=== PATIENT | male | born 1990 | race Two or more races ===

== ENCOUNTER 2018-10-29 16:20 | Emergency (ER) | payer BC ==
--- NOTE | 2018-10-29 16:28 | UC ---
Lower Extremity/Ankle HPI - HPI Summary HPI Summary: 28 yo male presents with b/l feet pain. 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 He has not changed footwear and denies specific injury. His pain is resolved with rest and states it does not happen if he has days off from work. He has tried OTC shoe inserts with no relief. Has not taken NSAIDs for his discomfort. - History of Current Complaint Stated Complaint: FEET PAIN Time Seen by Provider: 10/29/18 16:28 Hx Obtained From: Patient Onset/Duration: Gradual Onset Severity Initially: Moderate Severity Currently: None Pain Intensity: 4 Pain Scale Used: 0-10 Numeric Aggravating Factor(s): Standing, Ambulation Alleviating Factor(s): Rest Able to Bear Weight: Yes - Allergies/Home Medications Home Medications: Home Medications DULoxetine DR MCCABE* [Cymbalta CAP*] 10/29/18 [History] PMH/Surg Hx/FS Hx/Imm Hx - Additional Past Medical History Additional PMH: Muscle spasms - Surgical History Surgical History: None - Family History Known Family History: Positive: Non-Contributory - Social History Occupation: Employed Full-time Lives: With Family Alcohol Use: Occasionally Substance Use Type: None Smoking Status (MU): Never Smoked Tobacco Review of Systems All Other Systems Reviewed And Are Negative: No Constitutional: Positive: Negative Skin: Positive: Negative Respiratory: Positive: Negative Cardiovascular: Positive: Negative Musculoskeletal: Positive: Other: - B/L plantar foot pain Neurological: Positive: Negative Psychological: Positive: Negative Physical Exam - Summary Physical Exam Summary: GENERAL: NAD. WDWN. No pain distress. SKIN: No rashes, sores, lesions, or open wounds. CHEST: No accessory muscle use. Breathing comfortably and in no distress. CV: Pulses intact PT and DP. Cap refill <2seconds MSK: B/L feet: Moderate TTP about plantar fascia. No dorsal foot tenderness or ankle tenderness. Moves all toes without pain. Strength 5/5. NEURO: Alert. Sensations intact and symmetric B/L LEs PSYCH: Age appropriate behavior. Triage Information Reviewed: Yes Vital Signs: Vital Signs: Temp Pulse Resp BP Pulse Ox 98.4 F 84 18 127/72 97 10/29/18 16:40 10/29/18 16:40 10/29/18 16:40 10/29/18 16:40 10/29/18 16:40 Vital Signs Reviewed: Yes Lower Extremity Course/Dx - Course Course Of Treatment: Suspect plantar fasciitis b/l - likely exacerbated by his weight and job duties. Will rx for naproxen and have him f/u with Orthopedics for likely custom shoe inserts. He was provided with exercises to perform to stretch the area. - Differential Dx/Diagnosis Provider Diagnosis: Plantar fasciitis, bilateral Discharge ED - Sign-Out/Discharge Documenting (check all that apply): Patient Departure All imaging exams completed and their final reports reviewed: No Studies - Discharge Plan Condition: Stable Disposition: HOME Prescriptions: Naproxen [Naproxen 500 mg tab] 500 mg PO BID PRN #30 tablet PRN Reason: Pain - Moderate Patient Education Materials: Plantar Fasciitis (ED), Plantar Fasciitis Exercises (ED) Referrals: Juno Puckett DO [Primary Care Provider] - Josemanuel Sandy MD [Medical Doctor] - As Soon As Possible Additional Instructions: If you develop a fever, shortness of breath, chest pain, new or worsening symptoms - please call your PCP or go to the ED immediately. Try supportive and cushioned footwear while working I recommend that you try taking the Naproxen before your work shift to help decrease inflammation in your feet Please call Orthopedics at the number below to schedule an appointment for further evaluation and possible custom shoe inserts to help with your pain - Billing Disposition and Condition Condition: STABLE Disposition: Home
[2018-10-29 16:46] VITALS: BP 127/72
== END 2018-10-29 16:54 | disposition home or self-care (01) ==
LOC: UCEAST 16:20
DX: M72.2 Plantar fascial fibromatosis (principal)
CPT/HCPCS: 99202; G0463

== ENCOUNTER 2019-03-22 21:20 | Emergency (ER) | payer BC ==
--- OUTSIDE RECORDS SUMMARY | 2019-03-22 21:27 | XMS REPORT | Summary of Care ---
:1990 Author Organization [facility] Address [address] [facility] [place] [address] Care Team Providers Name Role Phone None, [place] Primary Care Provider Unavailable Reason for Visit Reason Comments Follow Up f/u right groin pain Encounter Details Date Type Department Care Team Description 01/28/2019 Office Visit [place] Lee Gaona MD Chronic pain of right inguinal region (Primary Dx); Surgery 1 [facility] Class 2 obesity due to excess calories without serious comorbidity with body mass index (BMI) of 38.0 to 38.9 in adult [address] [facility] [address] [address] [address] [place] [address] [phone] Allergies No Known Allergiesdocumented as of this encounter (statuses as of 01/28/2019) Medications Medication Sig Dispensed Refills Start Date End Date Status Sildenafil Citrate 25 MG Take 1 Tab by 0 Active Oral Tab mouth NEEDED. meloxicam (MOBIC) 7.5 MG Take 1 Tab by 60 Tab 1 01/28/2019 03/29/2019 Active Oral Tab mouth TWO TIMES DAILY WITH MEALS for 60 days. cyclobenzaprine Take 1 Tab by 42 Tab 0 01/28/2019 Active (FLEXERIL) 10 MG Oral mouth THREE Tab TIMES DAILY NEEDED (pain). documented as of this encounter (statuses as of 01/28/2019) Active Problems No known active problemsdocumented as of this encounter (statuses as of 2018) Social History Tobacco Use Types Packs/Day Years Used Date Never Smoker Smokeless Tobacco: Never Used Alcohol Use Drinks/Week oz/Week Comments Yes rare Sex Assigned at Date Recorded Not on file Job Start Date Occupation Industry Not on file Not on file Not on file Travel History Travel Start Travel End No recent travel history available. documented as of this encounter Last Filed Vital Signs Vital Sign Reading Time Taken Comments Blood Pressure - - Pulse 74 01/28/2019 8:06 AM EST Temperature - - Respiratory Rate 18 01/28/2019 8:06 AM EST Oxygen Saturation 97% 01/28/2019 8:06 AM EST Inhaled Oxygen Concentration - - Weight 136.1 kg (300 lb) 01/28/2019 8:06 AM EST Height 188 cm (6' 2") 01/28/2019 8:06 AM EST Body Mass Index 38.52 01/28/2019 8:06 AM EST documented in this encounter Progress Notes Lee Nj MD - 01/28/2019 8:00 AM EST Groin Pain Office Visit PATIENT: Eduardo Soriano : 1990 DATE OF SERVICE: 01/28/2019 Lee Nj MD [address] [place] [address] None, [place] Chief Complaint Patient presents with Follow Up f/u right groin pain HISTORY OF PRESENT ILLNESS: 01/28/19 Patient is here today with report of his right groin pain returning. He has not taken the muscle relaxant in over a month. He only intermittently is taking NSAIDs but reports symptoms with intercourse and prolonged standing. No bulging. 11/26/18 Mr. Soriano is here today for follow up of his right groin pain. He reports it is significantly better after his course of flexeril. Continues to deny any bulging or new issues. 10/08/18 Patient presents to the office with a complaint of Right groin pain of 2 years duration. He deniesa bulge. Denies signs or symptoms of obstruction. It was initially noticed in August 2016 and he underwent robotic rih repair with mesh. Pain was worse after surgery and since has noted intermittent swelling extending to the scrotum. He has had an extensive negative workup. He has undergone PT eval without treatment. He also underwent nerve injection and had relief for one week. The pain is severe, localized and intermittent. A comprehensive review of systems was negative. Past Medical History: Diagnosis Date H/O right inguinal hernia repair Past Surgical History: Procedure Laterality Date [place] REPAIR SLIDING INGUINAL HERNIA Social History Socioeconomic History Marital status: Single Spouse name: Not on file Number of children: Not on file Years of education: Not on file Highest education level: Not on file Occupational History Not on file Social Needs Financial resource strain: Not on file Food insecurity: Worry: Not on file Inability: Not on file Transportation needs: Medical: Not on file Non-medical: Not on file Tobacco Use Smoking status: Never Smoker Smokeless tobacco: Never Used Substance and Sexual Activity Alcohol use: Yes Comment: rare Drug use: Yes Types: Marijuana Sexual activity: Not Currently Lifestyle Physical activity: Days per week: Not on file Minutes per session: Not on file Stress: Not on file Relationships Social connections: Talks on phone: Not on file Gets together: Not on file Attends pentecostalism service: Not on file Active member of club or organization: Not on file Attends meetings of clubs or organizations: Not on file Relationship status: Not on file Intimate partner violence: Fear of current or ex partner: Not on file Emotionally abused: Not on file Physically abused: Not on file Forced sexual activity: Not on file Other Topics Concern Not on file Social History Narrative Work: [employer] Living with roommate Family History Problem Relation Age of Onset Cancer Father leukemia No current outpatient medications on file as of 10/08/2018. No current facility-administered medications on file as of 10/08/2018. No Known Allergies PHYSICAL EXAMINATION: Pulse 74 | Resp 18 | Ht 6' 2" (1.88 m) | Wt 300 lb (136.1 kg) | SpO2 97% | BMI 38.52 kg/m GENERAL: VS reviewed; no acute distress. SKIN: normal, no rashes or abnormalities noted. HEENT: normocephalic, atraumatic,sclera normal, anicteric, mucous membrane moist NECK: no mass, trachea midline ENDOCRINE: no thyromegaly. RESPIRATORY: nonlabored breathing, no respiratory distress; no clubbing, cyanosis, or edema. GI: Soft, nontender to deep palpation, nondistended. NEUROLOGICAL: Normal gait, no focal deficits PSYCHIATRIC: Alert and oriented to person, place and time HERNIA: No palpable hernia on examination; slight tenderness ASSESSMENT: ICD-9-CM ICD-10-CM 1. Chronic pain of right inguinal region 789.03 R10.31 338.29 G89.29 2. Class 2 obesity due to excess calories without serious comorbidity with body mass index (BMI) of 38.0 to 38.9 in adult 278.00 E66.09 V85.38 Z68.38 PLAN: We discussed resumption of medications vs referral for nerve block. He would prefer to take medications again as he did get some relief. Recommend restarting muscle relaxants with addition of meloxicam for one additional month. F/u in 4 weeks. Lee Nj MD 01/28/2019 08:58Electronically signed by Lee Nj MD at 9:11 AM ESTdocumented in this encounter Plan of Treatment Date Type Specialty Care Team Description 03/11/2019 Office Visit General Surgery Lee Nj MD [address] [place] [address] Health Maintenance Due Date Last Done Comments INFLUENZA VACCINE (#1) 2018 DEPRESSION SCREENING 09/16/2019 09/15/2018, 09/15/2018 HIV SCREENING 09/16/2019 Postponed from 2005 (Patient refused) HPV IMMUNIZATION SERIES Aged Out No longer eligible based on patient's age to complete this topic MENINGOCOCCAL VACCINE IMM Aged Out No longer eligible based on patient's age to complete this topic PNEUMOCOCCAL 0-64 YRS Aged Out No longer eligible based on patient's age to complete this topic documented as of this encounter Goals Goal Patient Goal Associated Recent Patient-Stated? Author Type Problems Progress Depression Depression 13 No Juno Puckett screen (PHQ-9) (09/15/2018 DO Diego total score < 5 8:19 AM EDT) Note: This is an individualized treatment (depression) goal for Eduardo Soriano: Displayed above is your goal for a depression screening (PHQ-9) score that would indicate good control of your depression. Keep a regular sleep schedule Lifestyle No Juno Puckett DO Note: This is an individualized lifestyle goal for Eduardo Soriano: Please maintain a regular sleep schedule. This may help with some symptoms of depression. Take all prescribed medications as directed Self-management Juno Easton DO Note: This is an individualized self-management goal for Eduardo Soriano: Please take all prescribed medications as directed. 1. Do not skip doses. If you cannot afford your medications, talk with your doctor. 2. Use a pill reminder system such as a pill box if needed. Your pharmacist can help you with this. 3. Contact your Pharmacy 5 days before your medication runs out. If you cannot take your medications for any reasons, talk with your doctor. 4. Please bring all of your medication bottles and inhalers (or a list of all your medications/inhalers) with you to every visit. Potential barriers to meeting all of your care plan goals will continue to be addressed on an ongoing basis. documented as of this encounter Results Not on filedocumented in this encounter Visit Diagnoses Diagnosis Chronic pain of right inguinal region - Primary Class 2 obesity due to excess calories without serious comorbidity with body mass index (BMI) of 38.0 to 38.9 in adult documented in this encounter Insurance Payer Benefit Plan / Subscriber ID Effective Dates Phone Address Type Group [employer] xxxxxxxxxxxx 2018-Present [employer] Guarantor Name Account Type Relation to Date of Phone Billing Patient Address Eduardo Soriano Personal/Family 1990 [address] ([address]) [address] [place] [address] documented as of this encounter
--- OUTSIDE RECORDS SUMMARY | 2019-03-22 21:27 | XMS REPORT | Summary of Care ---
:1990 Author Organization [facility] Address [address] [facility] [place] [address] Care Team Providers Name Role Phone None, [place] Primary Care Provider Unavailable Reason for Visit Reason Comments Follow Up f/u right groin pain Encounter Details Date Type Department Care Team Description 03/11/2019 Office Visit [place] Lee Gaona MD Chronic pain of right inguinal region (Primary Dx); Surgery 1 [facility] Class 2 obesity due to excess calories without serious comorbidity with body mass index (BMI) of 38.0 to 38.9 in adult [address] [facility] [address] [address] [place] [address] [phone] Allergies No Known Allergiesdocumented as of this encounter (statuses as of 03/12/2019) Medications Medication Sig Dispensed Refills Start Date [...] mouth THREE Tab TIMES DAILY NEEDED (pain). cyclobenzaprine Take 1 Tab by 42 Tab 3 03/11/2019 Active (FLEXERIL) 10 MG Oral mouth THREE Tab TIMES DAILY NEEDED (pain). documented as of this encounter (statuses as of 03/12/2019) Active Problems No known active problemsdocumented as of this encounter (statuses as of 2019) Social History Tobacco Use Types Packs/Day Years [...] Taken Comments Blood Pressure - - Pulse 84 03/11/2019 10:19 AM EST Temperature - - Respiratory Rate 16 03/11/2019 10:19 AM EST Oxygen Saturation 98% 03/11/2019 10:19 AM EST Inhaled Oxygen Concentration - - Weight 139.7 kg (308 lb) 03/11/2019 10:19 AM EST Height 188 cm (6' 2") 03/11/2019 10:19 AM EST Body Mass Index 39.54 03/11/2019 10:19 AM EST documented in this encounter Progress Notes Lee Nj MD - 03/11/2019 10:15 AM EST Groin Pain Office Visit PATIENT: Eduardo Soriano : 1990 DATE OF SERVICE: 03/12/2019 Lee Nj MD [address] [address] None, [place] Chief Complaint Patient presents with Follow Up f/u right groin pain HISTORY OF PRESENT ILLNESS: 03/11/2019 Eduardo is here today to discuss his chronic right groin pain. He states he has improvement with flexeril but it makes him tired. Overall his days of symptoms have decreased markedly since I began seeing him. Still denies bulging or new issues. 01/28/19 Patient is here today with report [...] repair Past Surgical History: Procedure Laterality Date [place] REPAIR SLIDING INGUINAL HERNIA Social History Socioeconomic History Marital status: Single Spouse name: Not on file Number of children: Not on file Years of education: Not on file Highest education level: Not on file Occupational History Not on file Social Needs Financial resource strain: Not on file Food insecurity Worry: Not on file Inability: Not on file Transportation needs Medical: Not on file Non-medical: Not on file Tobacco Use Smoking status: Never Smoker Smokeless tobacco: Never Used Substance and Sexual Activity Alcohol use: Yes Comment: rare Drug use: Yes Types: Marijuana Sexual activity: Not Currently Lifestyle Physical activity Days per week: Not on file Minutes per session: Not on file Stress: Not on file Relationships Social connections Talks on phone: Not on file Gets together: Not on file Attends jain service: Not on file Active member of club or organization: Not on file Attends meetings of clubs or organizations: Not on file Relationship status: Not on file Intimate partner violence Fear of current or ex partner: Not on file Emotionally abused: Not on file Physically abused: Not on file Forced sexual activity: Not on file Other Topics Concern Not on file Social History Narrative Work: [employer] Living with roommate Family History Problem Relation Age of Onset Cancer Father leukemia No current outpatient medications on file as of 10/08/2018. No current facility-administered medications on file as of 10/08/2018. No Known Allergies PHYSICAL EXAMINATION: Pulse 84 | Resp 16 | Ht 6' 2" (1.88 m) | Wt 308 lb (139.7 kg) | SpO2 98% | BMI 39.54 kg/m GENERAL: VS reviewed; no acute distress. SKIN: normal, no rashes or abnormalities noted. HEENT: normocephalic, atraumatic,sclera normal, anicteric, mucous membrane moist NECK: no mass, trachea midline ENDOCRINE: no thyromegaly. RESPIRATORY: nonlabored breathing, no respiratory distress; no clubbing, cyanosis, or edema. NEUROLOGICAL: Normal gait, no focal deficits PSYCHIATRIC: Alert and oriented to person, place and time ASSESSMENT: ICD-9-CM ICD-10-CM 1. Chronic pain of right inguinal region 789.03 R10.31 338.29 G89.29 2. Class 2 obesity due to excess calories without serious comorbidity with body mass index (BMI) of 38.0 to 38.9 in adult 278.00 E66.09 V85.38 Z68.38 PLAN: Will continue muscle relaxants at night and on an as needed basis. We discussed the next stepwould be a referral to pain management for consideration of a repeat nerve injection under ultrasound. In the meantime, he will continue to work on weight loss which I feel will improve his symptoms.We decided to not schedule a follow up at this time and he will contact us if he decides he wants toproceed with nerve block. I have refilled his flexeril. Lee Nj MD 03/12/2019 14:02Electronically signed by Lee Nj MD at 2:18 PM ESTdocumented in this encounter Plan of Treatment Health Maintenance Due Date Last Done Comments DTaP/Tdap/Td Vaccines (1 - 2001 Tdap) INFLUENZA VACCINE (#1) 2018 DEPRESSION SCREENING 09/16/2019 09/15/2018, 09/15/2018 HIV SCREENING 09/16/2019 Postponed from 2005 (Patient refused) HEPATITIS A IMMUNIZATION Aged Out No longer eligible based SERIES on patient's age to complete this topic HPV IMMUNIZATION SERIES Aged Out No longer [...] Take all prescribed medications as directed Self-management No Juno Puckett, DO Note: This is an individualized self-management [...] Diagnosis Chronic pain of right inguinal region Class 2 obesity due to excess calories without serious comorbidity with body mass index (BMI) of 38.0 to 38.9 in adult documented in this encounter Insurance Payer Benefit Plan / Subscriber ID Effective Dates Phone Address Type Group [employer] xxxxxxxxxxxx 2018-Present [employer] Guarantor Name Account Type Relation to Date of Phone Billing Patient Address Eduardo Soriano Personal/Family 1990 [address] ([address]) [address] [place] [address] documented as of this encounter
[2019-03-22 22:04] VITALS: BP 136/86
[2019-03-22 22:27] LABS: Influenza A Molecular Negative (Negative); Influenza B Molecular Negative (Negative)
[2019-03-22] MEDS ORDERED: Ondansetron ODT TAB* 4 MG PO ONE ×2 (22:30→22:54)
[2019-03-22] MEDS ORDERED: Amoxicillin PO (*) 500 MG CAP PO ONE ×2 (22:50)
--- NOTE | 2019-03-22 22:56 | UC ---
FLU HPI - HPI Summary HPI Summary: 29-year-old male comes in with chief complaint of sore throat fever chills body aches diarrhea nausea vomiting. Started last evening. He tried ibuprofen did not help much. - History of Current Complaint Chief Complaint: UCGeneralIllness Stated Complaint: FLU SYMPTOMS Time Seen by Provider: 03/22/19 22:30 Pain Intensity: 9 - Allergy/Home Medications Allergies/Adverse Reactions: Allergies Allergy/AdvReac Type Severity Reaction Status Date / Time No Known Allergies Allergy Verified 03/22/19 22:04 Home Medications: Home Medications Cholecalciferol TAB* [Vitamin D TAB*] 1,000 unit PO DAILY 03/22/19 [History Confirmed 03/22/19] Vitamin B Complex CAP* [B Complex CAP*] 1 cap PO DAILY 03/22/19 [History Confirmed 03/22/19] PMH/Surg Hx/FS Hx/Imm Hx Previously Healthy: Yes - Surgical History Surgical History: Yes Surgery Procedure, Year, and Place: hernia repair - Family History Known Family History: Positive: Non-Contributory - Social History Alcohol Use: Occasionally Substance Use Type: Marijuana Smoking Status (MU): Never Smoked Tobacco Review of Systems All Other Systems Reviewed And Are Negative: Yes Constitutional: Positive: Fever, Other - SEE HPI Skin: Positive: Negative Eyes: Positive: Negative ENT: Positive: Sore Throat Respiratory: Positive: Negative Cardiovascular: Positive: Negative Gastrointestinal: Positive: Vomiting, Diarrhea, Nausea Motor: Positive: Negative Neurovascular: Positive: Negative Musculoskeletal: Positive: Myalgia Neurological: Positive: Negative Psychological: Positive: Negative Is Patient Immunocompromised?: No Physical Exam Triage Information Reviewed: Yes Appearance: No Pain Distress, Well-Nourished, Ill-Appearing - MILD Vital Signs: Initial Vital Signs Temp 100.0 F 03/22/19 22:00 Pulse 100 03/22/19 22:00 Resp 18 03/22/19 22:00 BP 136/86 03/22/19 22:00 Pulse Ox 96 03/22/19 22:00 Vital Signs Reviewed: Yes Eye Exam: Normal Eyes: Positive: Conjunctiva Clear ENT: Positive: Pharyngeal erythema, Nasal congestion, Nasal drainage, TMs normal Neck: Positive: Supple Respiratory: Positive: Lungs clear, Normal breath sounds, No respiratory distress Cardiovascular: Positive: RRR Abdomen Description: Positive: Other: - Abdomen is mildly diffusely tender to palpation. Bowel Sounds: Positive: Present Musculoskeletal: Positive: Strength Intact, ROM Intact Neurological: Positive: Alert, Muscle Tone Normal Psychological: Positive: Age Appropriate Behavior Skin Exam: Normal Flu Course/Dx - Course Course Of Treatment: Flu is negative strep was positive. Started the patient on amoxicillin. Also given Zofran here in clinic. Given the patient's had diffuse abdominal pain nausea vomiting diarrhea, Patient should get reevaluated if not improving or worse. - Differential Dx/Diagnosis Provider Diagnosis: Strep pharyngitis Discharge ED - Sign-Out/Discharge Documenting (check all that apply): Patient Departure All imaging exams completed and their final reports reviewed: No Studies - Discharge Plan Condition: Stable Disposition: HOME Prescriptions: Amoxicillin PO (*) [Amoxicillin 875 MG (*)] 875 mg PO BID #18 tab Ondansetron ODT TAB* [Zofran 4 MG Odt TAB*] 4 mg PO Q6H PRN #5 tab.odt PRN Reason: Nausea/Vomiting Patient Education Materials: Strep Throat (ED) [place] [facility] [Outside] Additional Instructions: FOLLOW UP WITH YOUR DOCTOR IF NOT COMPLETELY IMPROVED. GO TO THE EMERGENCY DEPARTMENT IF NOT IMPROVED OR WORSE OR ANY QUESTIONS OR CONCERNS. - Billing Disposition and Condition Condition: STABLE Disposition: Home
== END 2019-03-22 23:05 | disposition home or self-care (01) ==
LOC: UCEAST 21:20
DX: J02.0 Streptococcal pharyngitis (principal); R19.7 Diarrhea, unspecified
CPT/HCPCS: 87651; 99213; A9270-GY; G0463

== ENCOUNTER 2019-05-05 11:26 | Emergency (ER) | payer BC ==
[2019-05-05 12:28] VITALS: BP 127/67
[2019-05-05] MEDS ORDERED: Azithromycin TAB* 250 MG PO ONE (14:28)
[2019-05-05] MEDS ORDERED: Lidocaine 1% MPF ** 5 ML VIAL IM ONE (14:28)
[2019-05-05] MEDS ORDERED: cefTRIAXone VIAL(*) 250 MG VIAL IM ONE (14:28)
[2019-05-05] MEDS ORDERED: Tenofovir/Emtricitab 200/300 * TAB PO ONE (14:45)
[2019-05-05] MEDS ORDERED: Raltegravir* 400 MG TAB PO ONE (14:46)
--- NOTE | 2019-05-05 14:54 | UC ---
Throat Pain/Nasal Jeyson HPI - HPI Summary HPI Summary: 29-year-old male comes in with a chief complaint of runny nose nasal congestion for a couple of weeks. He has green rhinorrhea. Does have some postnasal drip. Does have cough no complaint of shortness of breath. Also patient reports that he was having intercourse with a man last night and the condom broke. Patient reports that the person he was having sex with his high risk and he would like to be tested for sexually transmitted infections and be treated with PEP. No dysuria. No genital pain or lesions. - History of Current Complaint Chief Complaint: UCBodyFluidExposure Stated Complaint: CONGESTED Time Seen by Provider: 05/05/19 14:11 Pain Intensity: 4 - Allergies/Home Medications Allergies/Adverse Reactions: Allergies Allergy/AdvReac Type Severity Reaction Status Date / Time No Known Allergies Allergy Verified 05/05/19 12:28 Home Medications: Home Medications Cholecalciferol TAB* [Vitamin D TAB*] 1,000 unit PO DAILY 03/22/19 [History Confirmed 05/05/19] Vitamin B Complex CAP* [B Complex CAP*] 1 cap PO DAILY 03/22/19 [History Confirmed 05/05/19] DOXYcycline CAP(*) [DOXYcycline 100MG CAP(*)] 100 mg PO BID #20 cap 05/05/19 [Rx ] Raltegravir* [Isentress*] 400 mg PO BID #55 tab 05/05/19 [Rx] Tenofovir/Emtricitab 200/300 * [Truvada 200/300 mg*] 1 tab PO DAILY #27 tab 02/11 [Rx] PMH/Surg Hx/FS Hx/Imm Hx Previously Healthy: Yes - Surgical History Surgical History: Yes Surgery Procedure, Year, and Place: hernia repair now has chronic pain - Family History Known Family History: Positive: Non-Contributory - Social History Alcohol Use: Occasionally Substance Use Type: Marijuana Smoking Status (MU): Never Smoked Tobacco Review of Systems All Other Systems Reviewed And Are Negative: Yes Constitutional: Positive: Negative Skin: Positive: Negative Eyes: Positive: Negative ENT: Positive: Sore Throat, Nasal Discharge, Sinus Congestion, Sinus Pain/ Tenderness Respiratory: Positive: Cough Cardiovascular: Positive: Negative Gastrointestinal: Positive: Negative Genitourinary: Positive: Negative Motor: Positive: Negative Neurovascular: Positive: Negative Musculoskeletal: Positive: Negative Neurological/Mental Status: Positive: Negative Psychological: Positive: Negative Is Patient Immunocompromised?: No Physical Exam Triage Information Reviewed: Yes Appearance: No Pain Distress, Well-Nourished, Ill-Appearing - MILD Vital Signs: Initial Vital Signs Temp 98.7 F 05/05/19 12:24 Pulse 78 05/05/19 12:24 Resp 18 05/05/19 12:24 BP 127/67 05/05/19 12:24 Pulse Ox 98 05/05/19 12:24 Vital Signs Reviewed: Yes Eye Exam: Normal Eyes: Positive: Conjunctiva Clear ENT: Positive: Pharyngeal erythema, Nasal congestion, Nasal drainage, TMs normal Neck: Positive: Supple Respiratory: Positive: Lungs clear, Normal breath sounds, No respiratory distress Cardiovascular: Positive: RRR Musculoskeletal: Positive: Strength Intact, ROM Intact Neurological: Positive: Alert, Muscle Tone Normal Psychological: Positive: Age Appropriate Behavior Skin Exam: Normal Throat Pain/Nasal Course/Dx - Course Course Of Treatment: For the sinusitis we'll treat with doxycycline 100 mg milligrams by mouth twice a day 10 days. Patient reports exposure to a high risk individual. CBC, CMP, RPR, hepatitis B and C and HIV blood tests were drawn. Urine gonorrhea chlamydia was obtained. Patient treated with 1 g of azithromycin by mouth and Rocephin 250 mg IM in clinic. Also patient started on Truvada once a day for 28 days and Isentress 4 mg twice a day for 28 days. Patient will follow up with Dr. Marti infectious disease. Is a reevaluated sooner if worse or any questions or concerns. - Differential Dx/Diagnosis Provider Diagnosis: Sinusitis, Encounter for assessment of STD exposure Discharge ED - Sign-Out/Discharge Documenting (check all that apply): Patient Departure All imaging exams completed and their final reports reviewed: No Studies - Discharge Plan Condition: Stable Disposition: HOME Prescriptions: DOXYcycline CAP(*) [DOXYcycline 100MG CAP(*)] 100 mg PO BID #20 cap Raltegravir* [Isentress*] 400 mg PO BID #55 tab Tenofovir/Emtricitab 200/300 * [Truvada 200/300 mg*] 1 tab PO DAILY #27 tab Patient Education Materials: Sinusitis (ED) Referrals: Paul FLORES,Saleem Steele [Medical Doctor] - Additional Instructions: FOLLOW UP WITH INFECTIOUS DISEASE, DR JIMENEZ. CALL TODAY TO ARRANGE FOLLOW UP. Continue the Truvada once a day and [facility] a twice a day for total 28 days. GET REVALUATED SOONER IF NOT IMPROVED OR WORSE OR ANY QUESTIONS OR CONCERNS. - Billing Disposition and Condition Condition: STABLE Disposition: Home
[2019-05-05 19:07] LABS: ABS Eosinophils 0.1 10^3/ul (0-0.6); ABS Lymphocytes 1.3 10^3/ul (1.0-4.8); ABS Monocytes 0.5 10^3/ul (0-0.8); ABS Neutrophils 4.9 10^3/ul (1.5-7.7); Eosinophil % 1.6 %; Hematocrit 44 % (42-52); Hemoglobin 14.9 g/dL (14.0-18.0); Lymphocyte % 19.5 %; Mean Corpuscular HGB Conc 34 g/dL (31-36); Mean Corpuscular Hemoglobin 28 pg (27-31); Mean Corpuscular Volume 83 fL (80-94); Mean Platelet Volume 8.4 fL (7.4-10.4); Platelet Count 279 10^3/uL (150-450); Red Cell Distribution Width 15 % (10-15); White Blood Count 6.8 10^3/uL (3.5-10.8)
[2019-05-05 19:15] LABS: Albumin 4.7 g/dL (3.2-5.2); Calcium 9.8 mg/dL (8.6-10.3); Potassium 4.1 mmol/L (3.5-5.0); Total Bilirubin 0.5 mg/dL (0.2-1.0)
[2019-05-05 19:21] LABS: Albumin/Globulin Ratio 1.9 (1-3); BUN/Creatinine Ratio 24.3 (8-20); EGFR African American 151.3 (>60); Globulin 2.5 g/dL (2-4); Total Protein 7.2 g/dL (6.4-8.9)
[2019-05-05 19:55] LABS: Hepatitis B Surface Antigen Nonreactive (Nonreactive)
[2019-05-05 19:59] LABS: HIV 4th Generation Nonreactive (Nonreactive)
[2019-05-05 20:13] LABS: Hepatitis C Antibody Negative (Negative)
[2019-05-06 12:39] LABS: Hepatitis B Surface Ab Not Immune (Immune)
[2019-05-06 13:01] LABS: Chlamydia trachomatis NAA Negative (Negative); Neisseria gonorrhoeae (GC) NAA Negative (Negative)
== END 2019-05-05 15:36 | disposition home or self-care (01) ==
LOC: UCEAST 11:26
DX: J32.9 Chronic sinusitis, unspecified (principal); Z20.2 Contact with and (suspected) exposure to infections with a predominantly sexual mode of transmission
CPT/HCPCS: 36415; 80053; 85025; 86706; 86780; 86803; 87340; 87389; 87491; 87591; 96372; 99212; A9270-GY; G0463; J0696

== ENCOUNTER 2019-05-14 15:09 | Emergency (ER) | payer BC ==
--- NOTE | 2019-05-14 17:43 | UC ---
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 OF NOTE Pt currently on post-exposure prophylaxis for a sexual encounter - was seen here, states. Nothing MAKES IT BETTER/WORSE RECENT TRAVEL: NO RECENT COVID EXPOSURE: NO GI SYMPTOMS: NONE - History of Current Complaint Chief Complaint: UCGeneralIllness Stated Complaint: + EXPOSURE,RESP COMPLAINT Time Seen by Provider: 05/14/19 16:51 Hx Obtained From: Patient Pain Intensity: 2 Pain Scale Used: 0-10 Numeric - Allergies/Home Medications Allergies/Adverse Reactions: Allergies Allergy/AdvReac Type Severity Reaction Status Date / Time No Known Allergies Allergy Verified 05/14/19 17:21 Home Medications: Home Medications Cholecalciferol TAB* [Vitamin D TAB*] 1,000 unit PO DAILY 03/22/19 [History Confirmed 05/14/19] Vitamin B Complex CAP* [B Complex CAP*] 1 cap PO DAILY 03/22/19 [History Confirmed 05/14/19] Raltegravir* [Isentress*] 400 mg PO BID #55 tab 05/05/19 [Rx Confirmed 05/14/19] Tenofovir/Emtricitab 200/300 * [Truvada 200/300 mg*] 1 tab PO DAILY #27 tab 02/11 [Rx Confirmed 05/14/19] DOXYcycline CAP(*) [DOXYcycline 100MG CAP(*)] 100 mg PO BID #20 cap 05/06/19 [ Rx Confirmed 05/14/19] PMH/Surg Hx/FS Hx/Imm Hx - Surgical History Surgical History: Yes Surgery Procedure, Year, and Place: inguinal hernia repair - Family History Known Family History: Positive: Non-Contributory - Social History Alcohol Use: None Substance Use Type: Marijuana Substance Use Comment - Amount & Last Used: daily Smoking Status (MU): Never Smoked Tobacco Review of Systems All Other Systems Reviewed And Are Negative: Yes Constitutional: Positive: Fatigue. Negative: Fever Respiratory: Positive: Shortness Of Breath, Cough Physical Exam Triage Information Reviewed: Yes Vital Signs Reviewed: Yes Respiratory: Positive: No respiratory distress Neurological: Positive: Other: - normal speech Respiratory Course/Dx - Course Course Of Treatment: To decrease transmission of Covid 19 patient was interviewed by myself using telemedicine. This does limit the physical exam. RAPID STREP AND FLU NEG. O2 GOOD, AFEBRILE. - Differential Dx/Diagnosis Provider Diagnosis: Upper respiratory disease Discharge ED - Sign-Out/Discharge Documenting (check all that apply): Patient Departure All imaging exams completed and their final reports reviewed: No Studies - Discharge Plan Condition: Good Disposition: HOME Patient Education Materials: Upper Respiratory Infection (ED) Forms: COVID-19 Tested & Isolation Referrals: No Primary Care Phys,NOPCP [Primary Care Provider] - Additional Instructions: SEE PATIENT EDUCATION - Billing Disposition and Condition Condition: GOOD Disposition: Home
[2019-05-14 18:11] VITALS: BP 147/88
[2019-05-14 18:25] LABS: Influenza A Molecular Negative (Negative); Influenza B Molecular Negative (Negative)
== END 2019-05-14 18:31 | disposition home or self-care (01) ==
LOC: UCEAST 15:09
DX: J06.9 Acute upper respiratory infection, unspecified (principal); R53.83 Other fatigue; R06.02 Shortness of breath; Z20.828 Contact with and (suspected) exposure to other viral communicable diseases
CPT/HCPCS: 87651; 99212; G0463; U0002